=== PATIENT | female | born 2000 | race Caucasian/White ===

== ENCOUNTER 2023-01-12 13:16 | Outpatient (CLI) | payer OTHER, SELFPAY ==
--- NOTE | 2023-01-12 | ECHO_ITS ---
Patient Info Name: Dougie Allan Age: 22 years : 2000 Gender: Female Ht: 62 in Wt: 193 lbs BSA: 2.00 m2 HR: 82 bpm BP: 106 / 67 mmHg Heart Rhythm: Sinus Rhythm Technical Quality: Good Exam Date: 01/12/2023 1:39 PM Exam Location: Echo Lab Patient Status: Outpatient Admit Date: 01/12/2023 Staff Ordering Physician: Dougie Shah MD Damper Maker: Michelle Cardoza RDCS Attending Provider: Dougie Shah MD Referring Physician: Pablo HOUGH; Exam Type: CA echo doppler color flow Study Info Indications R01.1 - Cardiac murmur, unspecified Complete two-dimensional, color flow and Doppler transthoracic echocardiogram is performed. Summary 1. Complete two-dimensional, color flow and Doppler transthoracic echocardiogram is performed. 2. Normal left ventricular size systolic and diastolic function. 3. Unusual appearing aortic valve, possibly bicuspid. 4. Doppler evidence of significant transvalvular aortic gradient with valve area 0.9 cm2. 5. No aortic regurgitation. 6. Persistence of Chiari network noted in the right atrium( normal variant ). Left Ventricle Left ventricular chamber dimension is normal. Left ventricular systolic function is normal, estimated at 60-65%. The left ventricular diastolic function is normal. Right Ventricle Right ventricular chamber dimension is normal. Left Atria Left atrial chamber dimension is normal. Right Atria Right atrial chamber dimension is normal. Aortic Valve The aortic valve is bicuspid. There is moderate to severe aortic valve stenosis with a peak velocity of 349 cm/s, mean gradient of 28 mmHg, and aortic valve area of 0.9 cm2. There is no aortic valve regurgitation. Pulmonic Valve The pulmonic valve is not well visualized. Mitral Valve The mitral valve has normal leaflets. Tricuspid Valve The tricuspid valve leaflets are normal. Pericardium/Pleural The pericardium appears normal. Aorta The aortic root size at the sinus of Valsalva is normal. Left Ventricular Outflow Tract Name Value Normal LVOT 2D LVOT Diameter 2.0 cm LVOT Doppler LVOT Peak Gradient 4 mmHg LVOT Mean Gradient 2 mmHg LVOT VTI 21 cm LVOT VTI/AV VTI Ratio 0.3 LVOT Stroke Volume 62 ml LVOT CO 4.8 l/min LVOT CI 2.4 l/min/m2 Pulmonic Valve Name Value Normal RVOT Doppler RVOT Peak Gradient 2 mmHg PV Doppler PV Peak Gradient 5 mmHg Mitral Valve Name Value Normal MV Doppler
== END 2023-01-12 13:17 | disposition home or self-care (01) ==
PROVIDERS: Visit Provider Obstetrics & Gynecology
DX: R01.1 Cardiac murmur, unspecified (principal)
CPT/HCPCS: 93306

== ENCOUNTER 2023-02-20 10:34 | Outpatient (RCR) | payer OTHER, SELFPAY ==
[2023-02-20] MEDS: RHO(D) IMMUNE GLOBULIN 300 MCG/2 ML SYRINGE IM (17:10)
== END 2023-05-21 23:59 | disposition home or self-care (01) ==
LOC: ANHLAB 10:34
PROVIDERS: Visit Provider Obstetrics & Gynecology
DX: Z29.13 Encounter for prophylactic Rho(D) immune globulin (principal); O36.0130 Maternal care for anti-D [Rh] antibodies, third trimester, not applicable or unspecified; Z3A.00 Weeks of gestation of pregnancy not specified
CPT/HCPCS: 36415; 85461; 86850; 86900; 86901; 90384; 96372; J2790

== ENCOUNTER 2023-07-13 14:00 | Inpatient (IN) | payer OTHER, SELFPAY ==
--- NOTE | 2023-06-30 14:23 | PC.NURSE ---
Patient has signed consent for refusal of administration of Vit K, Ilotycin eye ointment and Hep B vac. Patient also sgined consent for placenta release on discharge
[2023-07-13 14:20] LABS: Basophils Absolute Auto 0.1 K/mm3 (0.0-0.1); Basophils Percent Auto 0.3 % (0.2-1.2); Eosinophils Absolute Auto 0.1 K/mm3 (0-0.3); Eosinophils Percent Auto 0.4 % (0-4.4); Hematocrit 41.1 % (37.0-47.0); Immature Granulocyte Absolute 0.15 K/mm3 (0.00-0.031); Immature Granulocyte Percent A 0.8 % (0-0.5); Lymphocytes Absolute Auto 2.34 K/mm3 (0.9-3.2); Lymphocytes Percent Auto 12.5 % (18.3-44.2); Mean Corpuscular HGB Conc 34.1 g/dl (32-36); Mean Corpuscular Hemoglobin 29.2 pg (26-34); Mean Corpuscular Volume 85.8 fl (80-100); Mean Platelet Volume 9.6 fl (7.4-10.4); Monocytes Absolute Auto 1.5 K/mm3 (0.1-0.6); Monocytes Percent Auto 7.9 % (2.6-8.5); Neutrophils Absolute Auto 14.6 K/mm3 (1.3-6.7); Neutrophils Percent Auto 78.1 % (45.5-73.1); Platelet Count Result 268 k/mm3 (150-375); Red Blood Count 4.79 M/mm3 (4.2-5.4); Red Cell Distribution Width 13.8 % (11.5-14.5); White Blood Count 18.7 K/mm3 (4.5-10.0)
[2023-07-13] MEDS: OXYTOCIN 30 UNITS/NS 500 ML 30 UNITS/500 ML BAG 999 UNITS IV CONT (14:28)
[2023-07-13 14:30] VITALS: TEMP 36.6
--- NOTE | 2023-07-13 14:35 | P.PCNOB_ITS ---
OB - Vaginal Delivery Note Procedure Delivery date: 07/13/23 Intrapartal Events: Other (meconium fluid) Induction method: None Delivery monitor: External FHT and External Uterine Route of delivery: Episiotomy description: None Laceration Description: None Specimen: No Quantitative Blood Loss (ml): 100 Anesthesia type: None Disposition: Floor Complications: No immediate complications Narrative: pt would like to take placenta home for encapsulation. discussed meconium fluid and would not rec ingestion of placenta due to potential infection [place] Baby Date of : 07/13/23 Time of : 14:20 Weeks of gestation at delivery: 39 gender: Male presentation: vertex position: Left Occiput Anterior Placenta delivery description: Spontaneous Cord Vessel Description: 3 Vessels
[2023-07-13 14:46] VITALS: BMI 39.9
[2023-07-13 15:44] VITALS: BP 111/65; PULSE 87
[2023-07-13 17:30] VITALS: BP 132/64; PULSE 90; RESP 18; TEMP 37.3; O2SAT 100
--- NOTE | 2023-07-13 17:44 | OBPPTRN ---
Patient transferred to post room #280 via walking. Support person present. Oriented to unit, room, information board, rooming in, admission packet and security measures. Patient verbalizes understanding.
[2023-07-13 19:30] VITALS: BP 111/68; PULSE 73; RESP 18; TEMP 36.6; O2SAT 100
[2023-07-13 23:46] VITALS: BP 113/70; PULSE 90; RESP 18; TEMP 36.5; O2SAT 98
[2023-07-14 04:02] VITALS: BP 110/76; PULSE 89; RESP 18; TEMP 36.4; O2SAT 100
--- NOTE | 2023-07-14 08:04 | P.PNOB_ITS ---
OB - PN: Subj Subjective Date/time seen: 07/14/23 08:04 Patient comments: no complaints, pain well controlled, incisional pain, tolerating diet and flatus present OB - PN: Obj Data Labs 07/14/23 03:39 Labs: Laboratory Results - last 24 hr 07/13/23 07/14/23 14:14 03:39 WBC 18.7 H RBC 4.79 Hgb 14.0 12.0 Hct 41.1 38.0 MCV 85.8 MCH 29.2 MCHC 34.1 RDW 13.8 Plt Count 268 MPV 9.6 Immature Gran % (Auto) 0.8 H Neut % (Auto) 78.1 H Lymph % (Auto) 12.5 L [place] % (Auto) 7.9 Eos % (Auto) 0.4 Baso % (Auto) 0.3 Lymph # (Auto) 2.34 [place] # (Auto) 1.5 H Eos # (Auto) 0.1 Baso # (Auto) 0.1 Abs Immat Gran (auto) 0.15 H Absolute Neuts (auto) 14.6 H Absolute Nucleated RBC 0.000 Nucleated RBC % 0.0 Blood Type O Negative Antibody Screen Negative OB - PN A/P Plan day: 1 Plan: routine care Comments: No problems, routine care Time Spent With Patient Time: Total time spent is greater than 50% in coordination of care (as documented) at patient's floor/unit and/or counseling patient: Exam Const: General: comfortable, no acute distress and alert Resp: Effort & Inspection: normal respiratory effort Auscultation: no crackles, no rales and no rhonchi Cardio: Rate: regular rate Heart sounds: no click, no murmurs and no rubs GI: Inspection: non-distended GI Palp: No Tenderness to palpation present (GI) Auscultation: normal bowel sounds Other: Incision - CDI Extrem: General: normal to inspection, no pedal edema and no calf tenderness
--- NOTE | 2023-07-14 08:05 | PM.OBDSVD ---
DS: Admitting Diagnosis Discharge Date July 14, 2023 Admitting Diagnosis term DS: Discharge Diagnosis Discharge Diagnosis (1) Post term , delivered: Code(s): O48.0 - Post-term Status: Acute OB - DS: Summary OB Procedures : None OB Procedures Intrapartum: Spontaneous Vag Delivery OB Procedures: : None Peripartum Data Laceration Description: None Episiotomy description: None Time Spent with Patient Time attestation: Total time spent providing and/or coordinating discharge services: DS: Data Data Completed and Pending Labs on day of discharge: Labs from last 24 hours 07/14/23 07/13/23 03:39 14:14 WBC 18.7 H RBC 4.79 Hgb 12.0 14.0 Hct 38.0 41.1 MCV 85.8 MCH 29.2 MCHC 34.1 RDW 13.8 Plt Count 268 MPV 9.6 Immature Gran % (Auto) 0.8 H Neut % (Auto) 78.1 H Lymph % (Auto) 12.5 L [place] % (Auto) 7.9 Eos % (Auto) 0.4 Baso % (Auto) 0.3 Lymph # (Auto) 2.34 [place] # (Auto) 1.5 H Eos # (Auto) 0.1 Baso # (Auto) 0.1 Abs Immat Gran (auto) 0.15 H Absolute Neuts (auto) 14.6 H Absolute Nucleated RBC 0.000 Nucleated RBC % 0.0 RPR Pending Blood Type O Negative Antibody Screen Negative Discharge Plan Discharge Discharging Clinician: Navarro Alvarado Patient Disposition: Home, Self-Care Activity: pelvic rest Diet: regular Patient Instructions: Antibiotic Form Stand Alone Forms: General Discharge Information Follow-up/Referrals: Navarro Alvarado MD [Physician] - Date of admission: 07/13/23 14:00 Primary Care Provider: UNKNOWN,DOCTOR Admitting Provider: Dougie Shah Attending physician on admission: Dougie Shah Condition: Stable
[2023-07-14 08:10] VITALS: BP 118/86; PULSE 83; RESP 16; TEMP 36.8; O2SAT 100
[2023-07-14 22:32] LABS: Rapid Plasma Reagin Non-Reactive (NonReactive)
== END 2023-07-14 15:20 | disposition home or self-care (01) | DRG 560 ==
LOC: ANHLDR 14:16 → ANHOB2 18:07
PROVIDERS: Admitting Provider Obstetrics & Gynecology; Referring Provider Advanced Practice Midwife; Visit Provider Obstetrics & Gynecology
DX: O77.0 Labor and delivery complicated by meconium in amniotic fluid (principal); Z3A.39 39 weeks gestation of pregnancy; Z37.0 Single live birth
CPT/HCPCS: 36415; 85014; 85018; 85025; 86592; 86850; 86900; 86901; J2590

== ENCOUNTER 2024-12-14 16:21 | Emergency (ER) | payer SELFPAY ==
[2024-12-14 16:24] VITALS: BP 134/84; PULSE 98; RESP 18; TEMP 36.6; O2SAT 99
--- OUTSIDE RECORDS SUMMARY | 2024-12-14 16:27 | XMS_ITS | Clinical Summary ---
Author Organization [facility] Address [address] [place] [address] Phone Care Team Providers Care Cigar Head Perforator Name Role Phone Provider, None Primary Care Provider Unavailabl e Allergies No known active allergies Medications Modafinil (PROVIGIL PO) Take by mouth. Active cyclobenzaprine (FLEXERIL) 10 MG Tablet Take 0.5 Tablets by mouth 3 times daily as needed for Muscle spasms. 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 Immunizations Immunization Administration Dates Next Due Covid-19, Mrna, Lnp-s, Pf, 30 Mcg/0.3 Ml Dose (Willian balderas) 12/28/2020,12/07/2020 Family History Medical History Relation Name Comments No Known Problems Father Cancer Maternal Grandfather No Known Problems Mother Relation Name Status Comments Father Alive Maternal Grandfather Mother Alive Social History Tobacco Use Types Packs/Day Years Used Date Smoking Tobacco: Former Smokeless Tobacco: Never Tobacco Cessation:Counseling Given: No Alcohol Use Standard Drinks/Week Comments No 0 (1 standard drink = 0.6 oz pur e alcohol) Sexually Active Control Partners Comments Yes Male Comments No Sex and Gender Information Value Date Recorded Sex Assigned at Not on file Legal Sex Female 12:07 AM CDT Gender Identity Not on file Sexual Orientation Not on file Last Filed Vital Signs Vital Sign Reading Time Taken Comments Blood Pressure 114/78 11/16/2021 4:32 PM CDT Pulse 82 11/16/2021 7:08 PM CDT Temperature 36.9 C (98.4 F) 11/16/2021 4:32 PM CDT Respiratory Rate 16 11/16/2021 7:08 PM CDT Oxygen Saturation 98% 11/16/2021 4:32 PM CDT Inhaled Oxygen Concentration - - Weight 81.6 kg (180 lb) 11/16/2021 4:32 PM CDT Height 157.5 cm (5' 2) 11/16/2021 4:32 PM CDT Body Mass Index 32.92 11/16/2021 4:32 PM CDT Plan of Treatment Health Maintenance Due Date Last Done Comments Hepatitis C Virus (HCV) Screening 2000 Human Papillomavirus (HPV) Immunization (1 - 3-dose series) 2013 Influenza Immunization (#1) 2024 12/17/2020 SARS-COV-2 Immunization (3 - 2024- season) 2024 12/28/2020, 12/07/2020 Respiratory Syncytial Virus (RSV) Immunization (Adult) (1 - 1-dose 75+ series) 2073 Hepatitis B Immunization Completed 000, [birth year] DTaP/Tdap/Td Immunization Discontinued 2020, 10/04/2010, 12/19/2002, Additional history exists TdaP Immunization Completed 09/10/2020, 10/04/2010 Meningococcal Immunization (ACWY) Aged Out No longer eligible based on patient's age to complete this topic Pneumococcal Immunization Combined Aged Out No longer eligible based on patient's age to complete this topic Rotavirus Immunization Aged Out No lo nger eligible based on patient's age to complete this topic Insurance Advance Directives * Full Code (Latest Code Status on File) Date Activated Date Inactivated Comments 03/18/2017 11:28 PM 03/19/2017 3:26 AM CPR-Full Tr eatment: FULL ARREST: Attempt Resuscitation/CPR wit intubation and mechanical ventilation. PRE-ARREST: Use entire range of life support measures to stabilize the patient. * Full Code Date Activated Date Inactivated Comments 02/25/2017 9:57 AM 02/25/2017 1:21 PM CPR-Full T reatment: FULL ARREST: Attempt Resuscitation/CPR wit intubation and mechanical ventilation. PRE-ARREST: Use entire range of life support measures to stabilize the patient. Care Teams Cigar Head Perforator Relationship Specialty Start Date End Date Provider, None [place] PCP - General 11/16/21
--- OUTSIDE RECORDS SUMMARY | 2024-12-14 16:27 | XMS_ITS | Clinical Summary ---
Author Organization [facility] [place] [address] Address [address] [place] [address] Care Team Providers Care Electrical Tester Battery Name Role Phone Shanta Villegas MD Primary Care Provider [phone] Joaquín Ruby MD Unavailable [phone] Allergies No known active allergies Medications ibuprofen (ADVIL,MOTRIN) 600 mg tablet Take 1 tablet (600 mg total) by mouth 4 (four) times a day as needed for pain. With food 20 tablet 11/03/2017 Active HYDROcodone-acet aminophen (NORCO) 5-325 mg per tabletIndication s:Pain Take 1 tablet by mouth every 6 (six) hours as needed for pain. 6 tablet 04/09/2018 Active modafiniL (PROVIGIL) 200 mg tablet Take 1 tablet (200 mg total) by mouth daily 30 tablet 5 10/26/2020 Active Active Problems Problem Noted Date Diagnosed Date Cardiac murmur, unspecified 01/12/2023 Closed nondisplaced fracture of proximal phalanx of right middle finger 04/18/2018 Assessment & Plan (04/18/2018 10:50 AM [employer]): Minimal edema, no erythema, no malrotation noted Will send her hand-based ulnar-gutter intrinsic-plus splint and see her back in about a month Chronic migraine without aura 01/26/2016 Overview (06/09/2016): Chronic migraine without aura Narcolepsy without cataplexy(347.00) 01/26/2016 Overview (06/09/2016): Narcolepsy without cataplexy Bipolar affective disorder 01/28/2013 Overview (06/09/2016): Bipolar disorder Heart murmur 10/04/2009 Surgical History Surgery Date Site/Laterality Comments TONSILLECTOMY Medical History Medical History Date Comments Hx Other Medical Bipolar disorde r Heart murmur Heart murmur; Co mments: SAB 02/15/2015 - Narcolepsy Heart murmur Abnormal Pap smear of cervix 11/03/2016 LSI L Family History Medical History Relation Name Comments Heart murmur Father Relation Name Status Comments Father Social History Tobacco Use Types Packs/Day Years Used Date Smoking Tobacco: Never Passive Smoke Exposure: Past Smokeless Tobacco: Never Tobacco Cessation:Counseling Given: Not Answered Alcohol Use Standard Drinks/Week Comments No 0 (1 standard drink = 0.6 oz pur e alcohol) Comments No Sex and Gender Information Value Date Recorded Sex Assigned at Not on file Legal Sex Female 7:23 PM [employer] Gender Identity Not on file Sexual Orientation Not on file Obstetrics History Para Term AB IAB SAB Ectopic Multiple Livin g Live Births 1 0 0 0 0 0 0 0 Date Outcome GA Total Labor Labor/2nd/3rd Weight Sex Type Anes PTL Scarlet A1 A5 Name Clin Last Filed Vital Signs Vital Sign Reading Time Taken Comments Blood Pressure 90/50 01/12/2023 12:55 PM [employer] Pulse 104 01/12/2023 12:55 PM [employer] Temperature 36.7 C (98.1 F) 04/09/2018 2:54 PM [employer] Respiratory Rate 20 04/09/2018 2:54 PM [employer] Oxygen Saturation 99% 01/12/2023 12:55 PM [employer] Inhaled Oxygen Concentration - - Weight 87.5 kg (193 lb) 01/12/2023 12:55 PM [employer] Height 158.1 cm (5' 2.25) 01/12/2023 12:[address] Body Mass Index 35.02 01/12/2023 12:55 PM [employer] Plan of Treatment Health Maintenance Due Date Last Done Comments Depression Screening 2000 Hepatitis C Screening 2000 HPV Vaccines (1 - 3-dose series) 2013 Regular Well Visit/Exam 18-64 02/11/2016 Cervical Cancer Screening 11/04/2017 11/04/2016 Influenza Vaccine (#1) 2024 12/17/2020 DTaP/Tdap/Td Vaccine (8 - Td or Tdap) 09/10/2030 09/10/2020, 10/04/2010, 12/19/2002, Additional history exists Hepatitis B Screening Completed 06/15/1999 , 2000, 2000 Varicella Vaccines Completed 10/04/2010, 12/19/2002 Pneumococcal vaccine <65 Aged Out No longer eligible based on patient's age to complete this topic Procedures Procedure Name Priority Date/Time Associated Diagnosis Comments PAP SMEAR Routine 11/04/2016 from Last 3 Months or Most Recently Relevant to Health Maintenance Results * Pap Smear (11/04/2016) Stephen Han MD LAB PATHOLOGY ORDERABLES F inal Result from Last 3 Months or Most Recently Relevant to Health Maintenance Insurance [employer] [facility] Care Teams Electrical Tester Battery Relationship Specialty Start Date End Date Shanta Villegas MD [address] [place] [address] PCP - General Obstetrics and Gynecology 12/01/22 Joaquín Ruby MD [address] [place] [address] 12/01/22
--- OUTSIDE RECORDS SUMMARY | 2024-12-14 16:27 | XMS_ITS | Data Portability ---
Author Organization [facility] Address [address] [place] [address] Assessment Encounter Date Assessment Date Assessment LastModified by Organization Details LastModified Time 06/20/2023 06/20/2023 Patient is __36_weeks . Discussed plan. Not available 06/20/2023 11:50:49 Plan of Treatment Reminders Order Date Submit Date Provider Last Modified By Organization Details Last Modified Time Details Appointments U/S OB FIRST LOOK 2024 10:30A M ULTRASOUND Not available Not available Not available OB NEW 2024 11:00A M ANTONINA SMITH MD Not available Not available Not available Lab None recorde d. Referral None recorde d. Procedures None recorde d. Surgeries None recorde d. Imaging US, duplex, venous, lower extremi ty, complet e 2023 024 [facility], [address], [place], [address], 06/26/2023 17:08:38 US, obstetr ic, follow- up 2023 024 [email or web address] [facility] [address], [place], [address], 06/13/2023 21:58:37 Medication Orders None recorde d. Patient TargetsNo targets recorded. Patient InstructionsNo instructions recorded. Reason for Referral None Reported. Results Created Date Observation Date Name Description Value Unit Range Abnormal Flag Note LastModifiedBy Organization Detail LastModifiedTime 05/15/19 24 05/15/2023 C-PEP TIDE C-peptide 2.76 NG/mL 1.1-4. 4 Not Available [facility] (Lab) [address], [place], [address], 05/16/2023 03:49:40 05/15/19 24 05/15/2023 INSUL IN,FA STING insulin, fasting 11.7 uIU/m L 1.9-23 .0 Not Available [facility] (Lab) [address], [place], [address], 05/16/2023 03:49:41 06/13/19 24 06/13/2023 CULTU RE: GROUP B STREP SCREE N, REFLE X SUSCE PTIBI LITY result report SEE RESULT S BELOW Test: Cultu re: Group B Strep , Refle x Susce ptibi lity ([facility]/ [facility]/K H/[facility] ) Speci men Sourc e: Vagin a/Rec chante Speci men Type: Vagin al/Re ctal Speci men Date: 2023 10:02 AM Resul t Date: 2023 3:29 PM Resul t Statu s: Final resul t Abnor mal: No Resul ting Lab: [facility] [address] [facility] [address] Tel: CULTU RE ----- ----- ----- --- No Group B strep isola betty at 2 days (jevon ctive broth enhan cemen t) Not Available [facility] (Lab) [address], [place], [address], 06/16/2023 16:31:55 05/15/19 24 05/15/2023 US, luzma richardo w-up No observ ation record ed. [email or web address] [facility] [address], [place], [address], 05/15/2023 13:05:10 05/15/19 24 05/15/2023 US, dishae tric follo w-up No observ ation record ed. [facility] [address], [place], [address], 05/15/2023 11:39:50 06/13/19 24 06/13/2023 US, obste tric, follo w-up No observ ation record ed. [facility] [address], [place], [address], 06/13/2023 11:44:40 06/13/19 24 06/13/2023 US, obste tric, follo w-up No observ ation record ed. DEEPA [facility] [address], [place], [address], 06/14/2023 14:55:50 10/22/19 24 01/12/2023 US, echoc ardio gram No observ ation record ed. [email or web address] [facility] [address], [place], [address], 10/22/2023 16:56:43 Result Notes None recorded. Problems Name Problem SNOMED Code Status Onset Date Resolution Date Notes Provider Name and Address Organization Details Recorded Time Marginal insertio n of umbilica l cord 77719161 Completed serial growth [facility] 4 12:50:16 RhD negative 280678724 Completed Declines 28wk rhogam - will wait for cord blood eval s/p delivery [facility] 4 12:50:16 Pregnanc y 35803241 Completed 202207/16/2023 [facility] 4 12:50:22 Problem Notes None recorded. Procedures Surgical History Date Name Laterality Status Provider Name and Address Organization Details Recorded Time 12/01/19 23 Date of Last Pap Smear completed Abbie Polanco [facility] 03/20/2023 10:27:49 07/04/19 16 Tonsillectomy completed [facility] 11/30/2022 10:14:27 Imaging Results None recorded. Procedure Notes None recorded. Medical Equipment None Reported. Allergies No known drug allergies Medications Name Sig Start Date Stop Date Status Note LastModified by Organization Details LastModified Time active Not Available Not Avai lable Not Available OneTouch Delica Plus Lancet 33 gauge active Not Available Not Available Not Available Vitals Date Recorded Body height Body mass index (BMI) Body weight Systolic And Diastolic Provider Name and Address Organization Details Last Updated DateTime 06/13/2023 157.48 cm 38.6 kg/m2 86940.990 07 g 120/75 mm[Hg] [facility] 06/13/2023 10:14:11 Date Recorded Body height Body mass index (BMI) Body weight Systolic And Diastolic Provider Name and Address Organization Details Last Updated DateTime 06/20/2023 157.48 cm 39 kg/m2 67431.174 81 g 138/92 mm[Hg] Abbie Polanco [facility] 06/20/2023 10:54:23 Date Recorded Body weight Provider Name an d Address Organization Details Last Updated DateTime 07/03/2023 [id number] Seema Buitrago [address], [place], [address], [facility] 07/03/2023 10:15:58 Date Recorded Body height Body mass index (BMI) Systolic And Diastolic Provider Name and Address Organization Details Last Updated DateTime 07/03/2023 157.48 cm 39 kg/m2 108/80 mm[Hg] [facility] 07/03/2023 09:52:18 Date Recorded Body height Body mass index (BMI) Body weight Systolic And Diastolic Provider Name and Address Organization Details Last Updated DateTime 07/09/2023 157.48 cm 38.7 kg/m2 84313.145 492 g 124/80 mm[Hg] [facility] 07/09/2023 09:34:44 Social History Question Answer Notes LastModified by Organizat ion Details LastModified Time Tobacco Smoking Status Never Smoker Erica Chandler [facility] 03/20/2023 09:52:06 If You Are , What Was Your Level Of Alcohol Consumption Prior To ? Occasional [email or web address] Information not available 06/20/2023 How Many Years Have You Consumed Alcohol? 4 Information not available 11/30/2022 Are You Blind Or Do You Have Difficulty Seeing? No Information n ot available 11/30/2022 What Is Your Level Of Caffeine Consumption? Occasional Information not available 11/30/2022 How Much Tobacco Do You Chew? None Information not available 11/30/2022 In The 14 Days Before Symptom Onset, Have You Had Close Contact With A Laboratory-confirm ed COVID-19 While That Case Was Ill? No Information n ot available 11/30/2022 In The 14 Days Before Symptom Onset, Have You Had Close Contact With A Person Who Is Under Investigation For COVID-19 While That Person Was Ill? No Information not available 11/30/2022 Have You Been To An Area Known To Be High Risk For COVID-19? No Information not available 11/30/2022 Are You Deaf Or Do You Have Serious Difficulty Hearing? No Information not available 11/30/2022 What Type Of Diet Are You Following? REGULAR Information n ot available 11/30/2022 What Is The Highest Grade Or Level Of School You Have Completed Or The Highest Degree You Have Received? [id number] Information not available 11/30/2022 Are There Any Guns Present In Your Home? No Information not available 11/30/2022 Do You Use Protection During Sex? No Information not available 11/30/2022 Do You Use Your Seat Belt Or Car Seat Routinely? No Information not available 11/30/2022 Do You Have Smoke And Carbon Monoxide Detectors In Your Home? Yes Information not available 11/30/2022 How Much Tobacco Do You Smoke? No Information not available 11/30/2022 Do You Use Sunscreen Routinely? No Information not available 11/30/2022 Have You Used IV Drugs? No Information not available 11/30/2022 Do You Have Difficulty Walking Or Climbing Stairs? No [email or web address] Information not available 03/20/2023 Sex: Unknown Functional Status Question Answer Note LastModified by Organizat ion Details LastModified Time Do you use any illicit or recreational drugs? No Information not available 11/30/2022 Do you or have you ever used any other forms of tobacco or nicotine? No [email or web address] Information not available 06/20/2023 What is your level of alcohol consumption? None [email or web address] Information not available 06/20/2023 Are you able to walk independently without assistance or assistive devices? YESWOREST Information not available 11/30/2022 Are you able to care for yourself independently? Yes [email or web address] Information not available 03/20/2023 What is your occupation? Homemaker Information not available 11/30/2022 Do you have difficulty dressing, bathing, grooming, or toileting? No [email or web address] Information not available 03/20/2023 What is your exercise level? Moderate Information not available 11/30/2022 Mental Status Question Answer Note LastModified by Organization D etails LastModified Time Do you feel stressed (tense, restless, nervous, or anxious, or unable to sleep at night)? [id number] Information not available 11/30/2022 Family History Relationship Description Onset Age of this Age Resolved Age Notes LastModified by Organization Details LastModified Time Father No current problems or disability [email or web address] Not available 11/30 10:05:01 Mother No current problems or disability [email or web address] Not available 11/30 10:05:01 Medical History Condition Response Allergies (Food, seasonal, environmental ) N Other N Drug/Latex Allergies/Reactions N Blood Transfusion N Breast Cancer N Dermatologic Disorders N Lung Disease N Defects or Inherited Disease N Breast Problem N Gestational Diabetes N Hematologic disorders N Anesthesia Complications N History of STI N Deep Vein Thrombosis N Polycystic ovary syndrome N Anxiety Disorder N Autoimmune disease N Arthritis N Polyps N Infertility N Acid Reflux (GERD) N History of abnormal pap N Cancer N Varicosities N Stroke N Neurologic/Epilepsy N Endometriosis N High Cholesterol N Fibromyalgia N Headaches N Kidney Disease N Heart Problems N Thyroid Problems N Kidney or Bladder Problems N GI Problems N Eating Disorder N Anemia N Art (IVF or FET) N Psychiatric Illness N Ovarian Cancer N Diabetes N Pulmonary (TB, Asthma) N Hepatitis/Liver Disease N No Past Medical History Y Eczema N Urinary Tract Infection N Abuse/Domestic Violence N Asthma N Trauma/Violence N Depression/ depression N Heart Disease N Pre-Eclampsia N Hypertension N Osteoporosis N Thrombophilias N Gynecological History Statement/Question Response Date of Last Mammogram Date of LMP 09/30/2022 On BCP's at Conception? N N Was last menstrual period normal Y STIs/STDs N HPV Vaccine N Duration of Flow (days) 6 Current Control Method Age at First Child 17 Frequency of Cycle (Q days) 38 Sexually Active? Y Date of DEXA bone scan Age of first menstrual cycle 7 Date of Last Pap Smear 11/30/2022 Sexual Problems? N LMP Definite N Obstetrics History GPAL:G 2 P 2 0 0 2 Type Value Full Term 2 Living 2 Total 2 Past Encounters Encounter ID Performer Location Encounter Start Date Encounter Closed Date Diagnosis/Indication Diagnosis SNOMED-CT Code Diagnosis ICD10 Code Diagnosis IMO Codes Diagnosis Note [id number] ANTONINA SMITH MD [facility] [address] [address] 11/30/2022 09:26:59 11/30/2022 09:57:45 screening 941697691 Z36.87 O26.841 Z3A.01 [id number] ANTONINA SMITH MD [facility] [address] [address] 11/30/2022 09:27:33 11/30/2022 12:31:24 test positive 207409364 Z32.01 1. Exam today within normal limits.2. US not c/w LMP. EDC 07/15/23 by 7 week US today3. GC/Clamydi a testing and pap smear done: will f/u as indicated. 4. ACOG guidelines and plan of care for reviewed with patient. All questions answered.5 . Return to office in 4 weeks for new OB visit.8. Will need new OB labs at next visit.9. Genetic screening: declines. Systolic murmur 47734326 R01.1 - referral to cardiology for evaluation and clearance [id number] MD Vernon JUAREZ [address],[place] [address] 12/28/2022 09:44:13 12/28/2022 10:38:22 screening 830472148 Z36.82 Z3A.11 [id number] MD Vernon JUAREZ [address],[place] [address] 12/28/2022 09:45:05 12/28/2022 11:33:26 Gestation period, 12 weeks 02984918 Z3A.12 Pruritic rash 81789977 L 28.2 Excessive growth of facial hair 793199421 L68.2 [id number] ANTONINA SMITH MD [facility] [address],[place] [address] 01/23/2023 09:25:03 01/23/2023 10:14:06 Routine care 337673500 Z34.91 [id number] Navarro Alvarado MD [facility] [address],[place] [address] 02/20/2023 09:30:07 02/20/2023 10:52:39 screening for malformation 438297360 Z36.3 Z3A.19 [id number] ANTONINA SMITH MD [facility] [address],[place] [address] 02/20/2023 09:30:33 02/20/2023 11:07:53 Vaginal bleeding complicating early 448726024 O20.9 Gestation period, 19 weeks 92254619 Z3A.19 [id number] Navarro Alvarado MD [facility] [address] [address] 03/20/2023 09:51:44 03/20/2023 11:23:01 Placental condition affecting management of mother 188631695 O43.102 Z3A.23 [id number] ANTONINA SMITH MD [facility] [address],[place] [address] 03/20/2023 09:52:02 03/20/2023 14:25:21 Gestation period, 23 weeks 32379362 Z3A.23 Acute conj unctivitis of left eye 0716858822 54012 H10.32 RhD negative 862376027 Z 01.83 [id number] MD Vernon JUAREZ [address],[place] [address] 04/17/2023 09:28:26 04/17/2023 11:00:17 Gestation period, 27 weeks 84697991 Z3A.27 screening 2437 79197 Z36.89 [id number] MD Vernon Pereira [address],[place] [address] 04/17/2023 09:28:51 04/17/2023 10:03:24 Placental condition affecting management of mother 326113216 O43.102 Z3A.27 [id number] MD Vernon JUAREZ [address],[place] [address] 05/01/2023 09:43:00 05/01/2023 10:40:10 Hypoglycemia 776812035 E16.2 Gestation period, 29 weeks 39284848 Z3A.29 [id number] MD Vernon Pereira [address],[place] [address] 05/15/2023 09:27:35 05/15/2023 10:24:59 Placental condition affecting management of mother 038585525 O43.103 Z3A.31 [id number] MD Vernon JUAREZ [address],[place] [address] 05/15/2023 09:28:24 05/15/2023 10:37:55 Routine care 577516410 Z34.91 [id number] MD Vernon Pereira [address],[place] [address] 06/13/2023 09:29:27 06/13/2023 10:02:41 Placental condition affecting management of mother 106091627 O43.103 Z3A.35 [id number] MD Vernon JUAREZ [address],[place] [address] 06/13/2023 09:29:51 06/13/2023 10:56:24 Localized swelling of right lower leg 5202019282 6627413 R22.41 Marginal i nsertion of umbilical cord 15730544 O43.129 Gestation period, 35 weeks 89675475 Z3A.35 [id number] Helen Suresh CNM [facility] [address],[place] [address] 06/20/2023 10:26:53 06/20/2023 11:56:14 Routine care 379743558 Z34.83 [id number] ANTONINA SMITH MD [facility] [address],[place] [address] 07/03/2023 09:46:20 07/03/2023 10:38:57 Marginal insertion of umbilical cord 75542280 O43.129 Gestation period, 38 weeks 18998418 Z3A.38 [id number] ANTONINA SMITH MD [facility] [address],[place] [address] 07/09/2023 09:29:51 07/09/2023 10:18:07 Marginal insertion of umbilical cord 97194142 O43.129 Gestation period, 39 weeks 35967064 Z3A.39 Health Concerns Section Related Observation LastModified by Organization Detai ls LastModified Time None Recorded Concern Status LastModified by Organization Details LastModified Time None Recorded Advance Directives Directive None Recorded Payers Insurance Date Sequence Insurance Name Policy Number Policy Painting Covered Member ID Painting Member ID Guarantor Name 12/13/2024 1 [facility] (MEDICAID HMO) [id number] Antonina Allan [id number] Antonina Allan Notes Date Note Type Note Provider Name and Address Organization Details Recorded Time 06/13/2023 text/html Generic HPI TemplateReported by Patient ANTONINA SMITH MD [address], [place], [address], [facility] 06/13/2023 10:46:16 06/20/2023 text/html Generic HPI TemplateReported by Patient [address] [place], [address], [facility] 06/20/2023 11:52:16 07/03/2023 text/html Generic HPI TemplateReported by Patient ANTONINA SMITH MD [address], [place], [address], [place] [facility] 07/03/2023 10:24:28 07/09/2023 text/html Generic HPI TemplateReported by Patient ANTONINA SMITH MD [address], [place], [address], [place] [facility] 07/09/2023 09:55:39 OBGyn Episode Ob Episode Information Episode Created Date Number of Fetuses Patient Bloodtype Patient rh Status Prepregnancy Weight lbs Domestic Partner Domestic Partner Phone Father Name Italian Teacher Status 12/01/19 23 1 CLOSED Fetus Data First Name Last Name Admitted to NICU Weight (g) Sex Living Outcome Pediatric Complications Fetus ID Race Codes Race Delivery Type 2551.45 5 F Full Term [id number] Vaginal Delivery Rafa Calculation Initial Rafa Date Initial Exam Date Initial Exam Provider Initial Ultrasound Date Last Menstrual Period Date Ultra Sound Weeks Gestation 0 Eighteen To Twenty Week Rafa Update Ultra Sound Date Fundal Height At Umbil Quickening Date Ultra Sound Latest Weeks Gestation Final Rafa Confirmed By Final Rafa Confirmed Date Final Rafa Date Ultra Sound Latest Days Gestation 0 0 Menstrual History Last Menstrual Date Menses Monthly On Bcp Conception Prior Menses Frequency Hcg Plus Date Menarche Onset Age Delivery Information Delivery Date Delivery Type Labor Anesthesia Weeks Gestation Incision Type Labor Labor Length Hrs Delivered By Post Complications Tubal Sterilization Discharge Date Comments 8 Ella a Discharge Information Feeding Method Contraceptive Method Maternal HG B and HCT Levels Ob Episode Information Episode Created Date Number of Fetuses Patient Bloodtype Patient rh Status Prepregnancy Weight lbs Domestic Partner Domestic Partner Phone Father Name Italian Teacher Status 12/29/19 23 1 O Negative 188.8 CLOSED Fetus Data First Name Last Name Admitted to NICU Weight (g) Sex Living Outcome Pediatric Complications Fetus ID Race Codes Race Delivery Type 3090.09 55 M true Full Term [id number] Vaginal Delivery Problems Problem Notes received RHogam 02/20 due to vaginal bleeding Problem Name Start Date End Date Resolution Snomed Code Not e RhD negative 617148173 Decline s 28wk rhogam - will wait for cord blood eval s/p delivery Marginal insertion of umbilical cord 46320202 serial growth Rafa Calculation Initial Rafa Date Initial Exam Date Initial Exam Provider Initial Ultrasound Date Last Menstrual Period Date Ultra Sound Weeks Gestation 07/15/2023 12/28/2022 11/30/2022 09/30/2022 7 Eighteen To Twenty Week Rafa Update Ultra Sound Date Fundal Height At Umbil Quickening Date Ultra Sound Latest Weeks Gestation Final Rafa Confirmed By Final Rafa Confirmed Date Final Rafa Date Ultra Sound Latest Days Gestation 0 12/28/2022 07/15/19 24 0 Pre- Flowsheet Flowsheet Date 12/28/2022 Schulz Score Blood Edema Fundus Height Fundus Units Glucose Ketones Leukocytes Nitrite Labor Signs Protein Cervic Dilation Cervic Effacement Cervic Station 12 Type Weight in lbs Pre/Post Dialysis Refused Weight 189.412052878681 BP Diastolic BP Location Tested BP Systolic BP Type 78 117 Fetus Heart Rate Present A 158 Fetus Movement Comments Presents to establish OB car e. Rash on right arm/hand, left leg/foot, right foot, left foot, and abdomen. No one else at home has rash. Some relief with hydrocortisone cream, but not long lasting relief. Will monitor, if unchanged or worse after 13 weeks, will start medrol dose pack. Discussed small risk of clefting with steroids in 1st tri. Desires genetic testing. New facial hair for the past few weeks. Had one episode of brown spotting, no bright red bleeding. NT/NB wnl today. Flowsheet Date 01/23/2023 Schulz Score Blood Edema Fundus Height Fundus Units Glucose Ketones Leukocytes Nitrite Labor Signs Protein Cervic Dilation Cervic Effacement Cervic Station 16 none neg Type Weight in lbs Pre/Post Dialysis Refused Weight 198.328484248574 BP Diastolic BP Location Tested BP Systolic BP Type 74 106 Fetus Heart Rate Present A 144 Fetus Movement A Yes Comments Doing well. Feeling flutters . Rash improved, as is facial hair. NIPT LR male. Plan for anatomy scan next visit. Routine care. Flowsheet Date 02/20/2023 Schulz Score Blood Edema Fundus Height Fundus Units Glucose Ketones Leukocytes Nitrite Labor Signs Protein Cervic Dilation Cervic Effacement Cervic Station Type Weight in lbs Pre/Post Dialysis Refused BP Diastolic BP Location Tested BP Systolic BP Type Fetus Heart Rate Present Fetus Movement Comments Flowsheet Date 02/20/2023 Schulz Score Blood Edema Fundus Height Fundus Units Glucose Ketones Leukocytes Nitrite Labor Signs Protein Cervic Dilation Cervic Effacement Cervic Station 20 Type Weight in lbs Pre/Post Dialysis Refused Weight 199.53801391721 BP Diastolic BP Location Tested BP Systolic BP Type 85 120 Fetus Heart Rate Present A 141 Fetus Movement A Yes Comments Reports some pink brown spot ting. Had one episode of bright red bleeding and small clots after sex, now resolved. Exam normal today, no bleeding, cervix closed. Will send to [facility] for Rhogam. No cramping or LOF. Good movement. Anatomy complete and normal today, marginal cord insertion with EFW 38%. Will do serial growth US. Flowsheet Date 03/20/2023 Schulz Score Blood Edema Fundus Height Fundus Units Glucose Ketones Leukocytes Nitrite Labor Signs Protein Cervic Dilation Cervic Effacement Cervic Station Type Weight in lbs Pre/Post Dialysis Refused BP Diastolic BP Location Tested BP Systolic BP Type Fetus Heart Rate Present Fetus Movement Comments Flowsheet Date 03/20/2023 Schulz Score Blood Edema Fundus Height Fundus Units Glucose Ketones Leukocytes Nitrite Labor Signs Protein Cervic Dilation Cervic Effacement Cervic Station neg none none trace Type Weight in lbs Pre/Post Dialysis Refused Weight 205.881061629803 BP Diastolic BP Location Tested BP Systolic BP Type 79 116 Fetus Heart Rate Present A 138 Fetus Movement A Yes Comments Woke up with red/bloody eye on . No pain. No trauma. Will make appointment with eye doctor if not improved. No further vaginal bleeding. Baby has neg blood type based on NIPT, will check if she needs rhogam. Growth US wnl, EFW 42%. Normal fluid. RTC 4 weeks for GCT and 28 week labs. Flowsheet Date 04/17/2023 Schulz Score Blood Edema Fundus Height Fundus Units Glucose Ketones Leukocytes Nitrite Labor Signs Protein Cervic Dilation Cervic Effacement Cervic Station Type Weight in lbs Pre/Post Dialysis Refused BP Diastolic BP Location Tested BP Systolic BP Type Fetus Heart Rate Present Fetus Movement Comments Flowsheet Date 04/17/2023 Schulz Score Blood Edema Fundus Height Fundus Units Glucose Ketones Leukocytes Nitrite Labor Signs Protein Cervic Dilation Cervic Effacement Cervic Station none none neg Type Weight in lbs Pre/Post Dialysis Refused Weight 213.452864958444 BP Diastolic BP Location Tested BP Systolic BP Type 79 120 Fetus Heart Rate Present A 135 Fetus Movement A Yes Comments Doing well, baby active. Dec kaylah glucanthony, discussed that this is gold standard for GDM screening, she would like to check sugars x2 weeks, f/pp. Will do other 28 week labs today. Discussed tdap vaccine, patient declines after discussion of r/b, says she received it last year. Discussed NIPT of RH status showed negative blood type for fetus, which is a diagnostic test per NIPT company. Discussed that there may still be a small false negative rate. Patient declines Rhogam until after cord blood eval at delivery. RTC 2 weeks to review glucose log. Flowsheet Date 05/01/2023 Schulz Score Blood Edema Fundus Height Fundus Units Glucose Ketones Leukocytes Nitrite Labor Signs Protein Cervic Dilation Cervic Effacement Cervic Station none none trace Type Weight in lbs Pre/Post Dialysis Refused Weight 212.527069778668 BP Diastolic BP Location Tested BP Systolic BP Type 80 118 Fetus Heart Rate Present A 145 Fetus Movement A Yes Comments Fastings 50s-60s, postprandi al 110 and below. Some episodes of hypoglycemia symptoms, resolve with eating. Reports longstanding history of hypoglycemic episodes. Will evaluate with labs today. Baby active, no ctx, LOF, VB. Would like to avoid induction this time. Would like natural labor. Has started to look into natural childbirth techniques. RTC 2 weeks for growth and office visit. Flowsheet Date 05/15/2023 Schulz Score Blood Edema Fundus Height Fundus Units Glucose Ketones Leukocytes Nitrite Labor Signs Protein Cervic Dilation Cervic Effacement Cervic Station Type Weight in lbs Pre/Post Dialysis Refused BP Diastolic BP Location Tested BP Systolic BP Type Fetus Heart Rate Present Fetus Movement Comments Flowsheet Date 05/15/2023 Schulz Score Blood Edema Fundus Height Fundus Units Glucose Ketones Leukocytes Nitrite Labor Signs Protein Cervic Dilation Cervic Effacement Cervic Station Type Weight in lbs Pre/Post Dialysis Refused Weight 209.375406614092 BP Diastolic BP Location Tested BP Systolic BP Type 85 128 Fetus Heart Rate Present A 154 Fetus Movement A Yes Comments Doing well, no issues. Baby active. Having some issues with first daughter's father. Growth today wnl, EFW 44%, vtx, ALEXANDER wnl. Repeating insulin level today. RTC 2 weeks. Flowsheet Date 06/13/2023 Schulz Score Blood Edema Fundus Height Fundus Units Glucose Ketones Leukocytes Nitrite Labor Signs Protein Cervic Dilation Cervic Effacement Cervic Station Type Weight in lbs Pre/Post Dialysis Refused BP Diastolic BP Location Tested BP Systolic BP Type Fetus Heart Rate Present Fetus Movement Comments Flowsheet Date 06/13/2023 Schulz Score Blood Edema Fundus Height Fundus Units Glucose Ketones Leukocytes Nitrite Labor Signs Protein Cervic Dilation Cervic Effacement Cervic Station neg none none trace Type Weight in lbs Pre/Post Dialysis Refused Weight 211.120660671526 BP Diastolic BP Location Tested BP Systolic BP Type 75 L arm 120 sitting Fetus Heart Rate Present A 153 Fetus Movement A Yes Comments Doing well, no ctx, LOF, VB. Good movement. Growth wnl, EFW 48%, ALEXANDER wnl. Insulin/c peptide level wnl last visit. No further hypoglycemia episodes. Does have mildly increased swelling on L foot > R foot. Will order dopplers, though low suspicion for DVT given no pain or redness. GBS collected today. RTC 1 week. Flowsheet Date 06/20/2023 Schulz Score Blood Edema Fundus Height Fundus Units Glucose Ketones Leukocytes Nitrite Labor Signs Protein Cervic Dilation Cervic Effacement Cervic Station neg none none trace Type Weight in lbs Pre/Post Dialysis Refused Weight 213.227763473296 BP Diastolic BP Location Tested BP Systolic BP Type 92 138 Fetus Heart Rate Present A 148 Present Fetus Movement Comments denies pih sxs, declines blo od work, does not want to be seen weekly, no changes, doing well, has preadmit scheduled. f/u as scheduled per dr smith, +FM precautions reviewed Flowsheet Date 07/03/2023 Schulz Score Blood Edema Fundus Height Fundus Units Glucose Ketones Leukocytes Nitrite Labor Signs Protein Cervic Dilation Cervic Effacement Cervic Station 2cm 60% -2 Type Weight in lbs Pre/Post Dialysis Refused Weight 213.694819938850 BP Diastolic BP Location Tested BP Systolic BP Type 80 108 Fetus Heart Rate Present A 140 Fetus Movement A Yes Comments Doing well. Had some bleedin g on wiping this morning. Good movement. No contractions. Speculum exam with no active bleeding, likely 2/2 irritation from cervical change. Would like to wait for spontaneous labor. Wants delayed cord clamping and no vitamin K shot (doing drops instead). Discussed unclear timeframe of vitamin K efficacy in early phase, would recommend delayed circumcision due to bleeding risk. Will discuss with social sciences chair for alternate circ provider. Patient agreeable. RTC 1 week. Flowsheet Date 07/09/2023 Schulz Score Blood Edema Fundus Height Fundus Units Glucose Ketones Leukocytes Nitrite Labor Signs Protein Cervic Dilation Cervic Effacement Cervic Station neg none none trace 3cm 60% -2 Type Weight in lbs Pre/Post Dialysis Refused Weight 211.823619910052 BP Diastolic BP Location Tested BP Systolic BP Type 80 L arm 124 sitting Fetus Heart Rate Present A 150 Fetus Movement A Yes Comments Doing well, good movem ent. No bleeding, LOF, ctx. Labor precautions reviewed. RTC 1 week. Menstrual History Last Menstrual Date Menses Monthly On Bcp Conception Prior Menses Frequency Hcg Plus Date Menarche Onset Age 0709/30/2022 Genetic Screening And Infection History Question Response Note Mental Retardation/Autism false Patient's Age Will Be 35 Years Or Older At Estim ated Date of Delivery false Thalassemia (Irish, Faroese, Mediterranean, Or Background): MCV < 80 false Neural Tube Defect (Meningomyelocele, Spina Bifi da, Or Anencephaly) false Congenital Heart Defect false Down Syndrome false Darwin-Sachs (eg, Holiness, Cajun, Slovenian-[place]) f alse Ernst Disease false Sickle Cell Disease Or Trait () false Hemophilia Or Other Blood Disorders false Muscular Dystrophy false Cystic Fibrosis false Louis's Chorea false Intellectual Disability/Autism false If Yes, Was Person Tested For Fragile X? false Other Inherited Genetic Or Chromosomal Disorder false Maternal Metabolic Disorder (eg, Type 1 Diabetes , PKU) false Patient Or Baby's Father Had A Child With Defects Not Listed Above false Recurrent Loss, Or A Stillbirth false Medications (including Suppl ements, Vitamins, Herbs, OTC Drugs), Illicit/Recreational Drugs, Alcohol false If Yes, Agent(s) And Strength/Dosage false Any Other Genetic History false Live With Someone With TB Or Exposed To TB false Patient Or Partner Has History Of Genital Herpes false Rash Or Viral Illness Since Last Menstrual Perio d false History Of STD, Gonorrhea, Chlamydia, HPV, Syphi lis false Other Infection History false History of HIV false History of Hepatitis false Prior GBS-infected child false Hemoglobinopathy Or Carrier false Other Structural Defect false Recent Travel History Outside of Country false Delivery Information Delivery Date Delivery Type Labor Anesthesia Weeks Gestation Incision Type Labor Labor Length Hrs Delivered By Post Complications Tubal Sterilization Discharge Date Comments 4 None None 39.5 Helen Palmer CNM Marginal insertion of umbilical cord,RhD negative Discharge Information Feeding Method Contraceptive Method Maternal HG B and HCT Levels
--- NOTE | 2024-12-14 16:35 | PC.NURSE ---
PT OBSERVED TO BE ROLLED OUT OF THE DEPARTMENT BY HER . NOTHING WAS SAID TO THIS RN OR ANY OTHER STAFF MEMBER.
== END 2024-12-14 19:27 | disposition left against medical advice (07) ==
LOC: ANHED 18:30
PROVIDERS: PCP Obstetrics & Gynecology
DX: O20.9 Hemorrhage in early pregnancy, unspecified (principal)
CPT/HCPCS: 99199